=== PATIENT | female | born 1955 | race Caucasian/White ===

== ENCOUNTER 2019-06-26 06:08 | Day surgery (SDC) | payer OTHER ==
[~2019-06-26 06:08] MED LIST: CEFAZOLIN 2 Gram 2 GM/50 ML BAG IVPB ONE; FAMOTIDINE 20MG TABLET PO ONE; MECLIZINE 25 MG TABLET PO ONE; METOCLOPRAMIDE 10 MG TABLET PO ONE
[2019-06-26] MEDS ORDERED: PROPOFOL 10 MG/ML VIAL IV ONE (06:09)
[2019-06-26] MEDS ORDERED: DEXAMETHASONE 4 MG/ML 1ML VIAL IVP ONE (06:09)
[2019-06-26] MEDS ORDERED: MIDAZOLAM HCL 2MG/2ML VIAL IV ONE (06:09)
[2019-06-26] MEDS ORDERED: EPHEDRINE SULFATE 50 MG/ML ML IV ONE (06:09)
[2019-06-26] MEDS ORDERED: FENTANYL PF 100MCG/2ML VIAL IV ONE (06:09)
[2019-06-26] MEDS ORDERED: ROPIVACAINE HCL (NAROPIN) /PF 5MG/ML 20ML VIAL IV ONE (06:09)
[2019-06-26] MEDS ORDERED: LIDOCAINE 2% MDV (20MG/ML) 20ML VIAL IV ONE (06:09)
[2019-06-26] MEDS ORDERED: 0.9 % SODIUM CHLORIDE 1000ML 1,000 ML IV ONE (06:35)
[2019-06-26] MEDS ORDERED: RINGERS SOLUTION,LACTATED 1,000 ML IV ONE ×2 (08:05→09:10)
[2019-06-26] MEDS ORDERED: TRANEXAMIC ACID 1,000 MG/10 ML ML IVPB ONE (08:30)
[2019-06-26] MEDS ORDERED: TRANEXAMIC ACID 1,000 MG in 0.9 % SODIUM CHLORIDE 100ML 100 ML IVPB ONE (11:00)
[2019-06-26] MEDS ORDERED: DIPHENHYDRAMINE HCL 25 MG CAPSULE PO PRN (11:15)
[2019-06-26] MEDS ORDERED: HYDROMORPHONE HCL 2 MG/ML VIAL IV PRN (11:15)
[2019-06-26] MEDS ORDERED: OXYCODONE HCL/APAP 5MG/325MG TABLET PO PRN (11:15)
[2019-06-26] MEDS ORDERED: TRAMADOL HCL 50 MG TABLET PO PRN (11:15)
[2019-06-26] MEDS ORDERED: MAGNESIUM HYDROXIDE 30 ML UDC PO PRN (11:15)
[2019-06-26] MEDS ORDERED: ACETAMINOPHEN 325 MG TAB PO PRN (11:15)
[2019-06-26] MEDS ORDERED: ONDANSETRON HCL IV 4 MG/2 ML VIAL IVP PRN (11:15)
[2019-06-26] MEDS ORDERED: METOCLOPRAMIDE HCL 10 MG/2 ML VIAL IVP PRN (11:15)
[2019-06-26] MEDS ORDERED: AL HYDROX/MAG HYDROX 30ML UD PO PRN (11:15)
[2019-06-26] MEDS ORDERED: SENNOSIDES/DOCUSATE SODIUM UD CAPSULE PO PRN (11:15)
[2019-06-26] MEDS ORDERED: HYDROCODONE/APAP 5/325MG TABLET PO PRN ×2 (11:15)
[2019-06-26] MEDS ORDERED: ZOLPIDEM TARTRATE 5 MG TABLET PO PRN (11:15)
[2019-06-26] MEDS ORDERED: NALOXONE 0.4 MG/1 ML VIAL IVP PRN (11:15)
[2019-06-26] MEDS: RINGERS SOLUTION,LACTATED 1,000 ML IV SCH ×2 (11:31→20:32)
[2019-06-26] MEDS: ESOMEPRAZOLE 40 MG PO SCH (11:32)
[2019-06-26] MEDS: ESTRADIOL 0.5 MG PO SCH (11:32)
--- NOTE | 2019-06-26 12:47 | Operative Note ---
DATE OF OPERATION: 06/26/2019 SURGEON: Mathieu Ferro D.O. PREOPERATIVE DIAGNOSIS: Osteoarthritis of the left knee. POSTOPERATIVE DIAGNOSIS: Osteoarthritis of the left knee. OPERATION: LEFT TOTAL KNEE ARTHROPLASTY. DESCRIPTION: This 64-year-old female was taken to the Operating Room and placed in the supine position on the operating room table. Spinal anesthesia had been induced by the Department of Anesthesia. The left lower extremity was then elevated, it was prepped with Hibiclens and draped in the usual sterile fashion. All scrub personnel worse personal isolation suits. An anterior longitudinal midline incision was made followed by a medial parapatellar arthrotomy incision. An intercondylar drill hole was made for the intramedullary alignment césar and a 9 mm 5 degree valgus cut was made in the distal femur and a wafer of bone was removed. The sizing jig was affixed, the patient had a marked AP ML mismatch showing significantly anterior to posterior dimension then mediolaterally. We had to move the pin sites 2 mm anteriorly and then even with that we took a 1 possibly 2 mm notch at the superolateral portion of the distal cortex of the femur. Medially the femoral cortex was entirely intact. The 4-in-1 cutting block was used to make the appropriate cuts and was made in 3 degrees of external rotation. We then directed our attention to the proximal tibia referencing a 10 mm cut off the lateral tibia plateau. The cut was made and a wafer of bone was removed. Remnants of the menisci and osteophytes were removed from the posterior aspect of the joint. The tibia was sized to a size 71 and the stem punch was used. Trial components were inserted with a 10 mm bearing showing excellent stability of the joint throughout full range of motion. The patella was then cut and restored to anatomic height with a 34 x 7.8 mm trial. Once we found excellent stability of all components all trial components were removed and the wound was copiously irrigated with pulse lavage lactated Ringer's solution. All bony surfaces were dried. All components were cemented and excess cement removed after the insertion of each component. Initially the 71 tibial base plate was cemented followed by the insertion of the tibial bearing, femoral component and finally the patella. Once the cement had hardened the knee was again taken through range of motion with excellent stability of the components being identified. A drain was then placed through a separate stab incision and the arthrotomy incision was closed with #2 Vicryl, subcutaneous tissue was closed with 0 Vicryl, and the skin was stapled. Sterile dressings are applied with Polar Care and the patient was taken to the Recovery Room in satisfactory condition. GROSS PATHOLOGY: This patient demonstrated osteoarthritis of mostly the medial compartment. Full thickness articular cartilage loss was noted there, advanced degenerative change is also noted at the patellofemoral joint with the lateral compartment showing Grade 2 changes. Final components inserted were a [employer] size 65 cruciate retaining femur, 71 tibial base plate, a 10 mm anterior stabilized tibial bearing and a 34 x 7.8 mm patella was used. JOB NUMBER: [id number] MTDD
[2019-06-26] MEDS: CEFAZOLIN 2 Gram 2 GM/50 ML BAG IVPB SCH ×2 (15:04→23:33)
[2019-06-26] MEDS: TRAMADOL HCL 50 MG TABLET PO PRN (15:58)
[2019-06-26] MEDS ORDERED: FONDAPARINUX 2.5 MG/0.5 ML SYR SQ SCH (16:00)
[2019-06-26] MEDS: OXYCODONE HCL/APAP 5MG/325MG TABLET PO PRN (18:54)
--- NOTE | 2019-06-26 19:46 | Rehab Evaluation ---
Patient Information - Patient Information Diagnosis: OA L knee, s/p TKA Ordered Treatment: PT Evaluate and Treat Status: Initial Evaluation Surgery: Yes (TKA) Date of Surgery: 06/26/19 History: Detail (Pt states she had a previous surgery on the left knee that progressively degenerated over time.) Past Med/[place] Hx Detail: Detail Past Medical/Surgical Hx: PAST MEDICAL/SURGICAL HISTORY Past Surgical History appy hyst TMJ lap eugenie bladder sling; left elbow CUBT; right ankle spinal fusion L-5 S-1 2013; left knee arthroscopy 2015; colonoscopy. PMH - Respiratory Hx Respiratory Disorders Yes Hx Bronchitis Yes: 1 yr ago Hx Pneumonia Yes: 1yr ago Comment: seasonal allergies PMH - Cardiovascular Hx Cardiovascular Disorders Yes Hx Hypertension Yes: on meds good control Exercise Tolerance Poor Hx of Migraines Yes: hx of PMH - Neuro Hx Neurological Disorders Yes PMH - GI Hx Gastrointestinal Disorders Yes Hx Gastroesophageal Reflux Yes PMH - Hx Genitourinary Disorders No Comment: post hyst PMH - Endocrine Hx Endocrine Disorders No PMH - Musculoskeletal Hx Musculoskeletal Disorders Yes Hx Arthritis Yes: left knee Comment: left knee pain PMH - Psych Hx Psychiatric Problems No PMH - Hematology/Oncology Hx Hematology/Oncology No Disorders Premorbid Status: Detail (Pt was ambulating independently w/o assistive device. 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 She has two steps to enter the home w/a single handrail. She has elevated toilet and grab bars around toilet and in shower, as well as shower bench.) Precautions: [place], Fall - Time With Patient Total Time Spent With Patient (Min): 35 Treatment Procedures: Detail (PT Evaluation) Subjective Information - Subjective Information Per Patient (Pt was sleeping upon arrival; awakened easily and initially refused therapy as pain was not well controlled. PT returned later and she was wanting to go to bathroom and was motivated to participate. Nrsg was notified of pain report and plans were made to give her something else once she was back in bed.) Objective Data - Pain Pain Present: Yes Pain Intensity: 5 Pain Scale Used: Numeric (1 - 10) - Mental Status Patient Orientation: Oriented x3 - Visual Perception Appears within normal limits for therapeutic activities - ROM Not within normal limits (WNL in R hip/knee/ankle, L hip/ankle; limited in L knee flexion and extension due to bulky dressing.) - Strength/Tone Not within normal limits (Grossly 4/5 in L hip, knee and ankle; 3/5 in R hip, 3- /5 in R knee; 4/5 in R ankle dorsiflexion.) - Coordination Appears within normal limits for therapeutic activities - Bed Mobility Needs Assist (Required minimal assist and use of trapeze to slide leg to edge of bed and come to sitting at edge of bed.) - Transfers Needs Assist (Required CGA for sit/stand transfer to front wheeled walker and to control descent onto commode as well to to rise from commode. SBA for transfer back to bedside.) - Balance Balance Sitting: Good Balance Standing: Fair - Sensation Intact - Gait Detail (Pt ambulated from bedside to bathroom for toileting, WBAT R LE, with front wheeled walker, with CGA and assist for IV pole. VCs for pivoting to commode and at bedside.) Therapy Assessment - Therapy Assessment Detail (Pt exhibits mobility impairments and range of motion limitations consistent with her post-surgical condition. She is a good candidate for inpatient physical therapy.) Patient Education - Patient Education Teaching Topic: Exercise/Activity Response: Return Demonstration, Verbalize Understanding Teaching Method: Discussion Teaching Recipient: Patient Barriers To Learning: None Problem List - Problem List Physical Therapy Problem List: Detail (1. Requires assist for bed mobility. 2. Requires assist for transfers. 3. Difficulty walking. 4. Impaired R LE range of motion and strength.) Goals - Goals Physical Therapy Goals: 1. Pt will be independent w/bed mobility. 2. Pt will be independent w/transfers. 3. Pt will safely ambulate household distances with front wheeled walker w/supervision. 4. Pt will safely ascend/descend three or more stairs w/supervision. 5. Pt will be independent in home exercise program. Prognosis - Prognosis Good Plan - Plan Physical Therapy Plan: Pt will be seen 1-2x tomorrow for mobility, transfer, gait and stair training, and review of home exercise program.
[2019-06-26] MEDS: ASPIRIN 325 MG TAB ENTERIC-COATED PO SCH (21:22)
[2019-06-27] MEDS: OXYCODONE HCL/APAP 5MG/325MG TABLET PO PRN ×2 (00:57→08:03)
[2019-06-27] MEDS: RINGERS SOLUTION,LACTATED 1,000 ML IV SCH (03:10)
[2019-06-27] MEDS: ESOMEPRAZOLE 40 MG PO SCH (06:30)
[2019-06-27] MEDS: CEFAZOLIN 2 Gram 2 GM/50 ML BAG IVPB SCH (06:31)
[2019-06-27] MEDS ORDERED: TRIAMTERENE PO SCH (10:00)
[2019-06-27] MEDS ORDERED: HCTZ PO SCH (10:00)
[2019-06-27] MEDS ORDERED: OLMESARTAN 20 MG PO SCH (10:00)
[2019-06-27] MEDS: TRAMADOL HCL 50 MG TABLET PO PRN (10:06)
[2019-06-27] MEDS: ASPIRIN 325 MG TAB ENTERIC-COATED PO SCH (10:06)
[2019-06-27] MEDS: ESTRADIOL 0.5 MG PO SCH (10:32)
--- NOTE | 2019-06-27 11:12 | Physical Therapy Tx Note ---
Physical Therapy Tx Note - Treatment Note Tolerated: Good Total Time Spent With Patient: 25 Physical Therapy Tx Note: Detail (Patient reported 04/19 at the time of the treatment session. She ambulated 50 feet over smooth surfaces with a front- wheeled walker independently. Patient was taught stair training and was able to ascend and descend 3 stairs with correct technique with supervision. She was independent with bed mobility and transfers, and used her R leg to hook the L leg to lift it into bed. Patient completed exercises from [facility] with correct technique. She was left in bed with her call light and her significant other was in the room with her. The nursing staff was notified of her position.) Physical Therapy Problem List: Detail (1. Requires assist for bed mobility. 2. Requires assist for transfers. 3. Difficulty walking. 4. Impaired R LE range of motion and strength.) Physical Therapy Goals: 1. Pt will be independent w/bed mobility. GOAL MET. 2. Pt will be independent w/transfers. GOAL MET. 3. Pt will safely ambulate household distances with front wheeled walker w/supervision. GOAL MET. 4. Pt will safely ascend/descend three or more stairs w/supervision. GOAL MET. 5. Pt will be independent in home exercise program. GOAL MET Prognosis: Good Physical Therapy Plan: Patient has met all inpatient therapy goals at this time.
--- NOTE | 2019-06-27 11:44 | Rehab Evaluation ---
Patient Information - Patient Information Diagnosis: OA L knee, s/p TKA Ordered Treatment: OT Evaluate and Treat Status: Initial Evaluation Surgery: Yes (TKA) Date of Surgery: 06/26/19 History: Detail (Pt states she had a previous surgery on the left knee meniscus that progressively degenerated over time.) Past Medical/Surgical Hx: PAST MEDICAL/SURGICAL HISTORY Past Surgical History appy hyst TMJ lap eugenie bladder sling; left elbow CUBT; right ankle spinal fusion L-5 S-1 2013; left knee arthroscopy 2015; colonoscopy. PMH - Respiratory Hx Respiratory Disorders Yes Hx Bronchitis Yes: 1 yr ago Hx Pneumonia Yes: 1yr ago Comment: seasonal allergies PMH - Cardiovascular Hx Cardiovascular Disorders Yes Hx Hypertension Yes: on meds good control Exercise Tolerance Poor Hx of Migraines Yes: hx of PMH - Neuro Hx Neurological Disorders Yes PMH - GI Hx Gastrointestinal Disorders Yes Hx Gastroesophageal Reflux Yes PMH - Hx Genitourinary Disorders No Comment: post hyst PMH - Endocrine Hx Endocrine Disorders No PMH - Musculoskeletal Hx Musculoskeletal Disorders Yes Hx Arthritis Yes: left knee Comment: left knee pain PMH - Psych Hx Psychiatric Problems No PMH - Hematology/Oncology Hx Hematology/Oncology No Disorders Premorbid Status: Detail (Pt was ambulating independently w/o assistive device and completing all ADLs indep, working, and driving. 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 She has one step to enter the home without a handrail. She has an elevated toilet and grab bars around toilet and in tub/shower, as well as shower bench. She also has a FWW and a cane.) Precautions: [place], Fall, Other (WBAT L KNEE) - Time With Patient Total Time Spent With Patient (Min): 25 (OT eval low complexity) Subjective Information - Subjective Information Per Patient (Ok to see per TOMMY Kinney, Pt reports it has taken a bit to get a pain regimen that works for her but feels it might be on track now.) Objective Data - Pain Pain Present: Yes Pain Scale Used: Numeric (1 - 10) (6/10 L knee - had meds this morning, RN present and states she will give more meds) - Mental Status Patient Orientation: Oriented x3 - Visual Perception Appears within normal limits for therapeutic activities - ROM Within normal limits (B UEs functional) - Strength/Tone Within normal limits (B UEs functional) - Coordination Appears within normal limits for therapeutic activities - Transfers Independent (sit to/from stand from elevated chair and toilet to FWW, slow but steady) - Balance Balance Sitting: Good, Fair Balance Standing: Fair (with use of FWW/GB at toilet) - Sensation Intact - Gait Detail (fxl mobility within bedroom with FWW, slow but steady, no safety concerns) - ADL's/IADL's Detail (Pt dons/doffs underwear, pants, and socks without adaptive device and use of modified technique per OT education, slow d/t pain but able. OT educates Pt on home safety, incl. seated showers and use of walker at all times initially. Pt demos and verbalizes independence with ADLs and home tasks, reports her will assist with tedhose.) - Special Tests No Therapy Assessment - Therapy Assessment Detail (Pt demos safety and indep with all ADLs/fxl mobility. No further IP OT needs identified.) Patient Education - Patient Education Teaching Topic: Equipment Use Response: Return Demonstration, Verbalize Understanding Teaching Method: Discussion, Demonstration Teaching Recipient: Patient Barriers To Learning: None Problem List - Problem List Physical Therapy Problem List: Detail (1. Requires assist for bed mobility. 2. Requires assist for transfers. 3. Difficulty walking. 4. Impaired R LE range of motion and strength.) Occupational Therapy Problem List: Detail (No further IP OT needs identified.) Goals - Goals Physical Therapy Goals: 1. Pt will be independent w/bed mobility. GOAL MET. 2. Pt will be independent w/transfers. GOAL MET. 3. Pt will safely ambulate household distances with front wheeled walker w/supervision. GOAL MET. 4. Pt will safely ascend/descend three or more stairs w/supervision. GOAL MET. 5. Pt will be independent in home exercise program. GOAL MET Occupational Therapy Goals: No further IP OT needs/goals identified. Prognosis - Prognosis Good Plan - Plan Physical Therapy Plan: Patient has met all inpatient therapy goals at this time. Occupational Therapy Plan: No further IP OT needs/goals identified. [facility] skilled OT services. Thank you for this referral.
--- NOTE | 2019-06-30 07:34 | Discharge Summary ---
DATE OF ADMISSION: 06/26/2019 DATE OF DISCHARGE: 06/27/2019 ADMITTING DIAGNOSIS: OSTEOARTHRITIS OF THE RIGHT KNEE. DISCHARGE DIAGNOSIS: OSTEOARTHRITIS OF THE RIGHT KNEE. OPERATIVE PROCEDURE: ELECTIVE RIGHT TOTAL KNEE ARTHROPLASTY. DESCRIPTION: This 64-year-old female was admitted to the hospital for elective total knee arthroplasty of the right knee. She tolerated the operative procedure well and the drain was removed the first postoperative day. She did clear physical therapy, showed no sign of complication and was cleared for discharge. She was instructed to use her SONA hose during the day and remove them at night. She will take aspirin 325 mg daily for four weeks. She was given a prescription for Percocet 5/325 mg #40 one every six hours as necessary for pain and she was also given a prescription for Tramadol 50 mg one to two every six hours as necessary for pain and she was given 60. She will have outpatient physical therapy, routine wound instructions were given, and she will follow-up in the clinic in two weeks. Should she have any problems prior to being seen she was instructed to call my office. JOB NUMBER: [id number] MTDD
== END 2019-06-27 15:28 | disposition home or self-care (01) ==
LOC: SUR 06:08 → MEDSURG 09:40 → SUR 06-27 15:28
PROVIDERS: ATTEND Orthopaedic Surgery
DX: M17.12 Unilateral primary osteoarthritis, left knee (principal); I10 Essential (primary) hypertension; Z68.36 Body mass index [BMI] 36.0-36.9, adult
CPT/HCPCS: 27447; 01402; 64447; J3010; J1170; J0690 ×2; J1652; J3490; J2795; 76942; J7030; J7120